=== PATIENT | female | born 2000 | race Caucasian/White ===

== ENCOUNTER 2024-07-17 08:16 | Emergency (ER) | payer OTHER, SELFPAY ==
--- NOTE | ~2024-07-17 | XR_ITS ---
XR abdomen obstructive series Ordering provider: Jeff Moreno APRN History: . left flank abdomen pain-r/o constipation/stone . Comparison: None. FINDINGS: BOWEL: Fecal material is seen in the right side and enteritis are extending the left side of the colo n suggestive of constipation. Nonobstructive bowel gas pattern. ORGANOMEGALY: None. SIGNIFICANT PATHOLOGIC CALCIFICATIONS: Stone is seen in the left kidney area. OTHER: No free air is seen under the diaphragm. IMPRESSION: NO ACUTE ABDOMINAL FINDINGS. Constipation Left renal stones. Reviewed, dictated and finalized at location A. FORCING METAL WORKER
--- NOTE | 2024-07-17 08:31 | ED_ITS ---
HPI - Abdominal Pain General Chief Complaint: Abdominal Pain Stated Complaint: abdominal pain Time Seen by Provider: 07/17/24 08:26 Source: patient Mode of arrival: ambulatory Limitations: no limitations History of Present Illness HPI narrative: Alvina is a 24-year-old transgender (male to female) patient presenting to the clinic today with complaints of abdominal pain/left flank pain since Tuesday. She report no BM since and this is not normal for her. Eating and drinking normally. Does have some nausea. Is passing gas. Does feel bloated at times. Pain is 4/10 constant achy at this time. Pain radiates from the left flank into the left lateral/lower abdomen. Has taken tylenol and some stool softener/laxative without relief. No history of kidney stones. No urinary symptoms, vomiting, or fever. Related Data Home Medications Medication Instructions Recorded Confirmed bicalutamide 50 mg tablet 50 mg PO DAILY 07/17/24 07/17/24 buspirone 10 mg tablet 10 mg PO BID 07/17/24 07/17/24 estradiol valerate 20 mg/mL 10 mg IM WEEKLY 07/17/24 07/17/24 intramuscular oil needle (disp) 18 G 18 gauge x 1 07/17/24 07/17/24 1/2 (BD Regular Bevel [place]) pramipexole 0.125 mg tablet 0.125 mg PO DAILY 07/17/24 07/17/24 progesterone micronized 100 mg 200 mg PO HS 07/17/24 07/17/24 capsule rimegepant 75 mg disintegrating 75 mg PO EVERY OTHER DAY 07/17/24 07/17/24 tablet (Nurtec ODT) syringe with needle 3 mL 23 gauge 07/17/24 07/17/24 x 1 1/2 (BD Luer-Emily Syringe) tadalafil 10 mg tablet 10 mg PO DAILY 07/17/24 07/17/24 Allergies Allergy/AdvReac Type Severity Reaction Status Date / Time No Known Allergies Allergy Verified 07/17/24 08:29 Review of Systems Review of Systems: Pertinent positives per HPI. Patient denies any fever, chills, rash, headache, visual changes, dizziness, cough, runny nose, sore throat, shortness of breath, chest pain, palpitations, vomiting, diarrhea PMFSH Comments At the time of my signature, I reviewed and agree with the nursing past medical, surgical, social, and family history. There is no relevant family history pertinent to the patient complaint. Exam Narrative: General: Well-developed, well nourished, in no apparent distress. Head: Normocephalic, atraumatic. Cardio: Regular rate and rhythm, s1 and s2 normal, no murmur appreciated. Resp: Clear to auscultation bilaterally, no rhonchi, rales, wheezing or rubs. Abdomen: Soft, pliable, nondistended, bowel sounds present, left lateral abdomen tender to palpation, no organomegly, left CVAT tenderness. Course Course Emergency Course: Portions of this record may have been created with voice recognition software. Level of Care: Express Care Visit Vital Signs Vital signs: Vital signs reviewed Transfer Transfered to: [facility] Transportation: Other (private car) Transfer rationale: Left flank pain, left lateral abdominal pain, constipation, hematuria, rule out obstructing kidney stone Accepting physician: Dr. Gleason Transfer comments: private car MDM - Abdominal Pain MDM Narrative Medical decision making narrative: At the time of visit patient is resting comfortably on the exam table. Patient appears to be nontoxic. Labs: Urinalysis dip was performed. UA shows a trace of blood. No sign of infection Diagnostics: Obstructive series x-ray was performed to rule out constipation, mass, or kidney stone. X-ray shows left-sided kidney stone and constipation Plan: I suspect patient has constipation with left-sided renal stones. Patient has hematuria with pain radiating from the left flank to the left lower abdomen. Recommend sending to the ER for further evaluation to make sure that there is not an obstructing stone in the ureter. Discussed this with the patient he voiced understanding and agrees to be transfer to the ER. He would like to be transfer to [facility]. Contacted Dr. Gleason at [facility] and he accepts patient for transfer. Patient to be transferred via private car. Differential Diagnosis Differential diagnosis: Likely abdominal pain, acute appendicitis, calculus of kidney, constipation, diverticulitis, gastroenteritis, pancreatitis and small bowel obstruction Discharge Plan Discharge Clinical Impression: Left flank pain, Left lateral abdominal pain, Left renal stone Constipation Qualifiers: Constipation type: unspecified constipation type Qualified Code(s): K59.00 - Constipation, unspecified Hematuria Qualifiers: Hematuria type: unspecified type Qualified Code(s): R31.9 - Hematuria, unspecified Patient Disposition: Acute Care Hospital Condition: Stable Instructions: Antibiotic Form Prescriptions: No Action bicalutamide 50 mg tablet 50 mg PO DAILY (DME) BD Regular Bevel [place] 18 gauge x 1 1/2 needle MISCELLANEOUS estradiol valerate 20 mg/mL oil 10 mg IM WEEKLY buspirone 10 mg tablet 10 mg PO BID pramipexole 0.125 mg tablet 0.125 mg PO DAILY (DME) syringe with needle [BD Luer-Emily Syringe] 3 mL 23 gauge x 1 1/2 syringe MISCELLANEOUS progesterone micronized 100 mg capsule 200 mg PO HS tadalafil 10 mg tablet 10 mg PO DAILY Nurtec ODT 75 mg tablet,disintegrating 75 mg PO EVERY OTHER DAY Follow-up/Referrals: UNKNOWN,DOCTOR [Primary Care Provider] - Time of Disposition: 09:22 Quality NIHSS Nursing Documentation ED NIHSS nursing documentation: reviewed/agree
[2024-07-17 08:35] VITALS: BP 125/76; PULSE 93; RESP 16; TEMP 37.1; O2SAT 100
[2024-07-17 09:13] LABS: EDUAAPPEAR Cloudy; EDUABILI Negative (Negative); EDUABLOOD Trace (Negative); EDUACOLOR1 Yellow; EDUAGLUCOSE Negative (Negative); EDUAKETONE Negative (Negative); EDUALEUKO Negative (Negative); EDUANITRATE Negative (Negative); EDUAPH 7.5; EDUAPROTEIN Negative (Negative); EDUAUROBILI 0.2
== END 2024-07-17 09:28 | disposition short-term general hospital (02) ==
PROVIDERS: Emergency Provider Nurse Practitioner Family
DX: K59.00 Constipation, unspecified (principal); R31.9 Hematuria, unspecified; N20.0 Calculus of kidney
CPT/HCPCS: 74019; 81003; 99203; G0463

== ENCOUNTER 2024-07-17 09:46 | Emergency (ER) | payer OTHER, SELFPAY ==
--- NOTE | ~2024-07-17 | CT_ITS ---
CT abdomen pelvis w con Ordering provider: Ton Lainez PA-C History: 24 years Female with . LLQ pain, L flank tender, eval for stone . Comparison: No Technique: CT abdomen and pelvis with IV and without oral contrast. Automated exposure control and it erative reconstruction technique were employed. The dose-length product was 515.94 mGy-cm. 100 mL Omn ipaque 350 was given IV. Findings: VISUALIZED LOWER CHEST: Normal. UPPER ABDOMINAL ORGANS: Liver: Normal. Gallbladder: Normal. Spleen: Normal. Stomach/duodenum: Normal. Pancreas: Normal. Adrenals: Normal. Kidneys: Hydronephrotic changes in the left kidney with a stone seen in the left upper ureter measuri ng 5 mm. Swelling of the left kidney with possible edema compared to the right is noted which may ind icate inflammatory changes. Further evaluation advised. PELVIC ORGANS: The bladder is underfilled.. BOWEL AND MESENTERY: Colon: No evidence of diverticulitis. Fecal material is loaded in the right side of the colon suggest carola of constipation. The appendix is not well demonstrated. Small Bowel: Normal. No obstruction. Peritoneum/mesentery: No free air or free fluid. No mesenteric lymphadenopathy. RETROPERITONEUM: Normal aorta. No retroperitoneal lymphadenopathy. MUSCULOSKELETAL: Superficial soft tissues: The superficial soft tissues are normal. Bones: Normal spine. IMPRESSION: 1. Stone in the left upper ureter with left hydronephrotic changes. Enlarged left kidney which raise s the possibility of pyelonephritis. Further evaluation advised. 2. Constipation. Reviewed, dictated and finalized at location A. EPRENEURSHIP PROGRAM DIRECTOR IMPRESSION: 1. Stone in the left upper ureter with left hydronephrotic changes. Enlarged l eft kidney which raises the possibility of pyelonephritis. Further evaluation a dvised. 2. Constipation.
[2024-07-17 10:01] VITALS: BP 131/78; PULSE 77; RESP 18; TEMP 37; O2SAT 100
--- NOTE | 2024-07-17 10:45 | ED_ITS ---
HPI - Female Genitourinary General Chief complaint: Urogenital-Female Stated complaint: left flank pain from UC Time Seen by Provider: 07/17/24 10:39 Source: patient Mode of arrival: ambulatory Limitations: no limitations History of Present Illness HPI Narrative: This is a 24-year-old biological male transitioning female who presents to the ED for chief complaint of left lower quadrant abdominal pain over the past couple of days. Reports it is intermittent in nature and is intermittently severe. Reports the pain radiates from left flank into the left lower quadrant. Had a UA done at urgent care that showed concern for kidney stone so they were sent here for scan. Endorses nausea but no vomiting. Denies urinary symptoms or hematuria. No history of stones in the past. Denies any other medical problems. Related Data Home Medications Medication Instructions Recorded Confirmed bicalutamide 50 mg tablet 50 mg PO DAILY 07/17/24 07/17/24 buspirone 10 mg tablet 10 mg PO BID 07/17/24 07/17/24 estradiol valerate 20 mg/mL 10 mg IM WEEKLY 07/17/24 07/17/24 intramuscular oil needle (disp) 18 G 18 gauge x 1 07/17/24 07/17/24 1/2 (BD Regular Bevel [place]) pramipexole 0.125 mg tablet 0.125 mg PO DAILY 07/17/24 07/17/24 progesterone micronized 100 mg 200 mg PO HS 07/17/24 07/17/24 capsule rimegepant 75 mg disintegrating 75 mg PO EVERY OTHER DAY 07/17/24 07/17/24 tablet (Nurtec ODT) syringe with needle 3 mL 23 gauge 07/17/24 07/17/24 x 1 1/2 (BD Luer-Emily Syringe) tadalafil 10 mg tablet 10 mg PO DAILY 07/17/24 07/17/24 Allergies Allergy/AdvReac Type Severity Reaction Status Date / Time amoxicillin Allergy Anaphylaxis Verified 07/17/24 09:47 cephalexin Allergy Anaphylaxis Verified 07/17/24 09:47 Review of Systems Review of Systems: All systems as dictated in HPI Exam Narrative: GENERAL: Well-appearing, well-nourished, and in no acute distress. HEAD: Normocephalic, atraumatic. EYES: PERRLA and EOMI. ENT: Nares clear, no rhinorrhea or epistaxis. Mucous membranes moist. Oropharynx without tonsillar hypertrophy exudate or other lesions. NECK: Supple. No adenopathy or masses. CHEST: No respiratory distress. Clear to auscultation. No wheezes rales or rhonchi HEART: Regular rate and rhythm. No murmur heard. Normal peripheral pulses. ABDOMEN: L flank tenderness present. Right flank nontender. Soft, otherwise nontender, nondistended, normal active bowel sounds. MSK: Normal range of motion. No edema. SKIN: Warm, dry, no rash. NEURO: Alert and oriented x4. No focal deficits. PSYCH: Normal mood and affect. Course Vital Signs Vital signs: Vital Signs Temperature 98.6 F 07/17/24 10:01 Pulse Rate 77 07/17/24 10:01 Respiratory Rate 18 07/17/24 10:01 Blood Pressure 131/78 07/17/24 10:01 Pulse Oximetry 100 07/17/24 10:01 Oxygen Delivery Room Air 07/17/24 10:01 Temperature 98.6 F 07/17/24 10:01 Pulse Rate 79 07/17/24 12:31 Respiratory Rate 18 07/17/24 12:31 Blood Pressure 139/93 H 07/17/24 12:31 Pulse Oximetry 100 07/17/24 12:31 Oxygen Delivery Room Air 07/17/24 10:01 MDM - Female Genitourinary MDM Narrative Medical decision making narrative: This is a 24-year-old male transitioning to female who presents to the ED for chief complaint of left flank pain and referred over for possible kidney stone. Vitals are normal. Exam shows left flank tenderness focally. Lab work is indicating a mild leukocytosis of 11.5. CMP unremarkable. Urinalysis unremarkable aside from trace leuks. CT abdomen pelvis with IV contrast: IMPRESSION: 1. Stone in the left upper ureter with left hydronephrotic changes. Enlarged left kidney which raises the possibility of pyelonephritis. Further evaluation advised. 2. Constipation. There is a 5 mm stone on the left side. Is proximal in nature. Patient's pain is in control on re-evaluation. Preferring to go home at this point on oral medications. Rx for hydrocodone, Flomax, Zofran given. Urology referral given. Patient will be discharged in stable condition. Supportive measures discussed and return precautions given. Patient is understanding and agreeable with plan for discharge with PCP/urology follow-up. Lab Data 07/17/24 10:47 07/17/24 10:47 Labs: Lab Results 07/17/24 07/17/24 Range/Units 10:47 10:57 WBC 11.5 H (4.5-10.0) K/mm3 RBC 4.59 (4.2-5.4) M/mm3 Hgb 13.9 (12.0-15.0) g/dL Hct 41.2 (37.0-47.0) % MCV 89.8 (80-100) fl MCH 30.3 (26-34) pg MCHC 33.7 (32-36) g/dl RDW 12.4 (11.5-14.5) % Plt Count 209 (150-375) k/mm3 MPV 9.3 (7.4-10.4) fl Immature Gran % (Auto) 0.3 (0-0.5) % Neut % (Auto) 76.9 H (45.5-73.1) % Lymph % (Auto) 12.6 L (18.3-44.2) % Dougherty % (Auto) 8.6 H (2.6-8.5) % Eos % (Auto) 1.3 (0-4.4) % Baso % (Auto) 0.3 (0.2-1.2) % Lymph # (Auto) 1.45 (0.9-3.2) K/mm3 Dougherty # (Auto) 1.0 H (0.1-0.6) K/mm3 Eos # (Auto) 0.2 (0-0.3) K/mm3 Baso # (Auto) 0.0 (0.0-0.1) K/mm3 Abs Immat Gran (auto) 0.03 (0.00-0.031) K/mm3 Absolute Neuts (auto) 8.8 H (1.3-6.7) K/mm3 Absolute Nucleated RBC 0.000 (0.0-0.012) K/mm3 Nucleated RBC % 0.0 (0.0-0.2) % Sodium 139 (137-145) mmol/L Potassium 4.0 (3.4-5.0) mmol/L Chloride 103 (98-107) mmol/L Carbon Dioxide 30 (22-30) mmol/L Anion Gap 6 (4-12) mmol/L BUN 10 (7-17) mg/dL Creatinine 0.80 (0.7-1.0) mg/dL Estim Creat Clear Calc 108 ml/min Estimated GFR > 60 (59 - ) Glucose 96 (65-110) mg/dL Calcium 8.9 (8.4-10.2) mg/dL Total Bilirubin 1.0 (0.2-1.3) mg/dL AST 22 (14-36) U/L ALT 13 (6-35) U/L Alkaline Phosphatase 46 (38-126) U/L Total Protein 8.0 (6.3-8.2) g/dL Albumin 4.2 (3.5-5.1) g/dL Lipase 53 (23-300) U/L Urine Color Yellow (Yellow) Urine Appearance Clear (Clear) Urine pH 7.0 (5.0-9.0) Ur Specific [place] 1.017 (1.001-1.035) Urine Protein Negative (Negative) mg/dL Urine Glucose (UA) Negative (Negative) mg/dL Urine Ketones Negative (Negative) mg/dL Ur Blood (Man) Negative (Negative) Urine Nitrate Negative (Negative) Urine Bilirubin Negative (Negative) Urine Urobilinogen 1.0 (<2.0) mg/dL Leukocyte Esterase Rfl Trace H (Negative) CAMER[place]/UL Urine RBC 0-2 (0-2) /hpf Urine WBC 0-5 (0-3) /hpf Ur Squamous Epith Cells None seen (Few) /hpf Urine Bacteria None seen /hpf Urine Casts 0-2 Discharge Plan Discharge Clinical Impression: Calculus of proximal left ureter Patient Disposition: Home, Self-Care Condition: Stable Instructions: Antibiotic Form, Kidney Stones (ED) Additional Instructions: Exam and imaging today do show a left-sided kidney stone that is about 5 mm. P lease take medications as prescribed and follow-up with Urology on this issue. Stone should pass, use the strainer with urination. If you have any new or worsening symptoms please return to the ER for further evaluation. Prescriptions: New tamsulosin [Flomax] 0.4 mg capsule 0.4 mg PO DAILY Qty: 10 0RF ondansetron 4 mg tablet,disintegrating 4 mg PO Q8H PRN (Reason: nausea and vomiting) Qty: 10 0RF hydrocodone-acetaminophen 5-325 mg tablet 1 tablet PO Q8H PRN (Reason: pain) Qty: 14 0RF No Action bicalutamide 50 mg tablet 50 mg PO DAILY (DME) BD Regular Bevel [place] 18 gauge x 1 1/2 needle MISCELLANEOUS estradiol valerate 20 mg/mL oil 10 mg IM WEEKLY buspirone 10 mg tablet 10 mg PO BID pramipexole 0.125 mg tablet 0.125 mg PO DAILY (DME) syringe with needle [BD Luer-Emily Syringe] 3 mL 23 gauge x 1 1/2 syringe MISCELLANEOUS progesterone micronized 100 mg capsule 200 mg PO HS tadalafil 10 mg tablet 10 mg PO DAILY Nurtec ODT 75 mg tablet,disintegrating 75 mg PO EVERY OTHER DAY Follow-up/Referrals: Silvestre Duke MD [Physician] - PHYSICIAN,BITUMEN PLANT OPERATOR [Non-Staff] - Time of Disposition: 12:18
[2024-07-17 10:54] LABS: Basophils Percent Auto 0.3 % (0.2-1.2); Eosinophils Absolute Auto 0.2 K/mm3 (0-0.3); Eosinophils Percent Auto 1.3 % (0-4.4); Hematocrit 41.2 % (37.0-47.0); Hemoglobin 13.9 g/dL (12.0-15.0); Immature Granulocyte Absolute 0.03 K/mm3 (0.00-0.031); Immature Granulocyte Percent A 0.3 % (0-0.5); Lymphocytes Absolute Auto 1.45 K/mm3 (0.9-3.2); Lymphocytes Percent Auto 12.6 % (18.3-44.2); Mean Corpuscular HGB Conc 33.7 g/dl (32-36); Mean Corpuscular Hemoglobin 30.3 pg (26-34); Mean Corpuscular Volume 89.8 fl (80-100); Mean Platelet Volume 9.3 fl (7.4-10.4); Monocytes Percent Auto 8.6 % (2.6-8.5); Neutrophils Absolute Auto 8.8 K/mm3 (1.3-6.7); Neutrophils Percent Auto 76.9 % (45.5-73.1); Platelet Count Result 209 k/mm3 (150-375); Red Blood Count 4.59 M/mm3 (4.2-5.4); Red Cell Distribution Width 12.4 % (11.5-14.5); White Blood Count 11.5 K/mm3 (4.5-10.0)
[2024-07-17] MEDS: MORPHINE SULFATE (*CRX) 4 MG/ML INJ IV PUSH (11:02)
[2024-07-17 11:03] VITALS: BP 133/82; PULSE 79; RESP 18; O2SAT 99
[2024-07-17] MEDS: ONDANSETRON INJ 4 MG/2 ML VIAL IV PUSH (11:03)
[2024-07-17 11:11] LABS: Add Urine Microscopic? YES; Appearance Urine Clear (Clear); Bacteria Urine None Seen /hpf; Bilirubin Urine Negative (Negative); Blood Urine Negative (Negative); Color Urine Yellow (Yellow); Glucose Urine UA Negative (Negative); Ketones Urine Negative (Negative); Leukocyte Esterase Ur Trace LEU/UL (Negative); Nitrate Urine Negative (Negative); Non Pathogenic Casts 0-2; Protein Urine Negative (Negative); RBC Urine 0-2 /hpf (0-2); Specific Grav Ur 1.017 (1.001-1.035); Squamous Epithelial Cell Urine None Seen /hpf (Few); WBC Urine 0-5 /hpf (0-3)
--- NOTE | 2024-07-17 11:12 | PC.NURSE ---
Pt reports is in processes of transitioning. Currently, taking po hormone medications, states has not started surgical process. Bedside not performed. EDMD aware
[2024-07-17 11:18] LABS: Alanine Aminotransferase 13 U/L (6-35); Albumin Level 4.2 g/dL (3.5-5.1); Alkaline Phosphatase 46 U/L (38-126); Anion Gap 6 mmol/L (4-12); Aspartate Amino Transferase 22 U/L (14-36); Blood Urea Nitrogen 10 mg/dL (7-17); Calcium 8.9 mg/dL (8.4-10.2); Carbon Dioxide 30 mmol/L (22-30); Chloride 103 mmol/L (98-107); Estimated CRCL calculation 108 ml/min; Estimated Glomerular Filt Rate > 60; Glucose 96 mg/dL (65-110); Lipase 53 U/L (23-300); Sodium 139 mmol/L (137-145)
[2024-07-17 12:31] VITALS: BP 139/93; PULSE 79; RESP 18; O2SAT 100
== END 2024-07-17 12:32 | disposition home or self-care (01) ==
PROVIDERS: Emergency Provider Physician Assistant
DX: N20.1 Calculus of ureter (principal); F64.0 Transsexualism; Z79.899 Other long term (current) drug therapy; Z79.890 Hormone replacement therapy; K59.00 Constipation, unspecified
CPT/HCPCS: 36415; 74177; 80053; 81001; 83690; 85025; 96374; 96375; 99284; J2270; J2405; Q9967

== ENCOUNTER 2024-09-12 14:11 | Emergency (ER) | payer OTHER, SELFPAY ==
[2024-09-12 14:20] VITALS: BP 123/64; PULSE 84; RESP 18; TEMP 36.7; O2SAT 100
[2024-09-12 14:32] LABS: EDUAAPPEAR Clear; EDUABILI Negative (Negative); EDUABLOOD Negative (Negative); EDUACOLOR1 Yellow; EDUAGLUCOSE Negative (Negative); EDUAKETONE Negative (Negative); EDUALEUKO Negative (Negative); EDUANITRATE Negative (Negative); EDUAPROTEIN Negative (Negative); EDUAUROBILI 0.2
--- NOTE | 2024-09-12 15:03 | ED.GENADULT ---
HPI - General Adult General Chief complaint: Urogenital-Female Stated complaint: uti symptoms Source: patient Mode of arrival: ambulatory Limitations: no limitations History of Present Illness HPI narrative: This is a 24 yr old transgender female who presents for evaluation of low back pain and urinary symptoms. Patient states that she had a kidney stone identified in late June. She had a passing the stone on 08/20/24. She now has some low back discomfort that she attributes to playing hockey. She has noted a several week history of mild dysuria and a few episodes where she has visualize some blood in ejaculate post-sexual climax. She denies any fever, chills, abdominal pain testicular pain, urethral discharge or other urinary symptoms. Her female sex partner is asymptomatic. Pt was given flomax when she had the kidney stone but has not been taking it in several weeks. Related Data Home Medications ?Medication ?Instructions ?Recorded ?Confirmed ?Last Taken ?Type bicalutamide 50 mg tablet 50 mg PO DAILY 07/17/24 07/17/24 Unknown History buspirone 10 mg tablet 10 mg PO BID 07/17/24 07/17/24 Unknown History estradiol valerate 20 mg/mL 10 mg IM WEEKLY 07/17/24 07/17/24 Unknown History intramuscular oil needle (disp) 18 G 18 gauge x 1 07/17/24 07/17/24 Unknown History 1/2 (BD Regular Bevel [employer]) pramipexole 0.125 mg tablet 0.125 mg PO DAILY 07/17/24 07/17/24 Unknown History progesterone micronized 100 mg 200 mg PO HS 07/17/24 07/17/24 Unknown History capsule rimegepant 75 mg disintegrating 75 mg PO EVERY OTHER DAY 07/17/24 07/17/24 Unknown History tablet (Nurtec ODT) syringe with needle 3 mL 23 gauge 07/17/24 07/17/24 Unknown History x 1 1/2 (BD Luer-Emily Syringe) tadalafil 10 mg tablet 10 mg PO DAILY 07/17/24 07/17/24 Unknown History Allergies Allergy/AdvReac Type Severity Reaction Status Date / Time amoxicillin Allergy Severe Anaphylaxis Verified 09/12/24 14:18 cephalexin Allergy Severe Anaphylaxis Verified 09/12/24 14:18 Review of Systems Review of Systems: CONSTITUTIONAL: Denies fever, chills, or sweats. EYES: Denies visual changes, redness, or discharge. ENT: Denies rhinorrhea, congestion, sore throat, or otalgia. CARDIOVASCULAR: Denies chest pain, palpitations, or edema. RESPIRATORY: Denies cough or dyspnea. GASTROINTESTINAL: Denies abdominal pain, nausea, vomiting, or diarrhea. GENITOURINARY: Reports some blood in ejaculate following sexual climax on several occasions. Denies urethral discharge. Denies dysuria or hematuria. SKIN: Denies rash or itching. MUSCULOSKELETAL: Reports low back pain. Denies joint pain, or myalgia. NEUROLOGIC: Denies headache, numbness, dizziness, or weakness. PSYCHIATRIC: Denies anxiety or depression. [facility] Past Medical History Medical History Migraine Restless legs Surgical History Surgical History Hx of appendectomy Family History Family History Mother Family history non-contributory Social History Social History Gender identity (if verbalized by the patient): Transgender Female Spiritual care concerns: No Exam Narrative: GENERAL: Well-appearing, well-nourished, and in no acute distress. HEAD: Normocephalic, atraumatic. EYES: PERRLA and EOMI. ENT: Nares clear, no rhinorrhea or epistaxis. Mucous membranes moist. Oropharynx without tonsillar hypertrophy exudate or other lesions. Bilateral TMs pearly long nonbulging NECK: Supple. No adenopathy or masses. No carotid bruits or JVD CHEST: Clear to auscultation. No respiratory distress. No wheezes rales or rhonchi HEART: Regular rate and rhythm. No murmur heard. Normal peripheral pulses. ABDOMEN: Soft, nontender, nondistended, normal active bowel sounds. BACK: No tenderness in midline or paraspinous muscles of lumbar spine. No CVA tenderness PROSTATE: No boggy. No enlargement. No nodules palpated EXTREMITIES: Normal range of motion. No edema. SKIN: Warm, dry, no rash. NEURO: No focal deficits. Alert and oriented x3. PSYCH: Normal mood and affect. Course Course Emergency Course: This is a 24-year-old transgender female who presented for evaluation of low back pain and urinary symptoms. no evidence of UTI today. I did offer STI testing which patient declined. Other differentials would be renal colic verses prostatitis verses BPH. Prostate exam today was normal. Pt has no CVA tenderness today suggesting kidney stone. In fact, reported pain as 2/10 in severity. Pt looks well clinically. Recommended she follow up with PCP and go to the ER In the event that she has persistent worsening symptoms. Patient in agreement with plan of care. Level of Care: Express Care Visit Vital Signs Vital signs: Vital Signs Temperature 36.7 C 09/12/24 14:20 Pulse Rate 84 09/12/24 14:20 Respiratory Rate 18 09/12/24 14:20 Blood Pressure 123/64 09/12/24 14:20 Pulse Oximetry 09/12/24 14:20 Oxygen Delivery Room Air 09/12/24 14:20 Temperature 36.7 C 09/12/24 14:20 Pulse Rate 09/12/24 14:20 Respiratory Rate 18 09/12/24 14:20 Blood Pressure 123/64 09/12/24 14:20 Pulse Oximetry 100 09/12/24 14:20 Oxygen Delivery Room Air 09/12/24 14:20 Medical Decision Making Vital Signs Vital Signs: Vital Signs Temperature 36.7 C 09/12/24 14:20 Pulse Rate 84 09/12/24 14:20 Respiratory Rate 18 09/12/24 14:20 Blood Pressure 123/64 09/12/24 14:20 Pulse Oximetry 09/12/24 14:20 Oxygen Delivery Room Air 09/12/24 14:20 Temperature 36.7 C 09/12/24 14:20 Pulse Rate 84 09/12/24 14:20 Respiratory Rate 18 09/12/24 14:20 Blood Pressure 123/64 09/12/24 14:20 Pulse Oximetry 09/12/24 14:20 Oxygen Delivery Room Air 09/12/24 14:20 Lab Data Labs: Lab Results 09/12/24 Range/Units 14:30 POC Urine Color Yellow POC Urine Clarity Clear POC Urine pH 6.0 POC Ur Specif [place] 1.020 POC Urine Protein Negative (Negative) POC Ur Glucose (UA) Negative (Negative) POC Urine Ketones Negative (Negative) POC Urine Blood Negative (Negative) POC Urine Nitrite Negative (Negative) POC Urine Bilirubin Negative (Negative) POC Urine Urobilinogen 0.2 POC U Leukocyte Esteras Negative (Negative) Discharge Plan Discharge Clinical Impression: History of kidney stones, Low back pain, Lower urinary tract symptoms (LUTS) Patient Disposition: Home, Self-Care Condition: Stable Instructions: Antibiotic Form, Kidney Stones (ED), Acute Low Back Pain (ED), Dysuria (ED) Additional Instructions: PLEASE FOLLOW UP WITH YOUR PRIMARY PROVIDER THIS WEEK. YOU MAY BENEFIT FROM: 1.STI TESTING 2.REPEAT URINALYSIS 3.PSA IF YOU HAVE WORSENING BACK PAIN OR URINARY SYMPTOMS PLEASE GO TO THE ER Patient Language: French Prescriptions: No Action bicalutamide 50 mg tablet 50 mg PO DAILY (DME) BD Regular Bevel [employer] 18 gauge x 1 1/2 needle MISCELLANEOUS estradiol valerate 20 mg/mL oil 10 mg IM WEEKLY buspirone 10 mg tablet 10 mg PO BID pramipexole 0.125 mg tablet 0.125 mg PO DAILY (DME) syringe with needle [BD Luer-Emily Syringe] 3 mL 23 gauge x 1 1/2 syringe MISCELLANEOUS progesterone micronized 100 mg capsule 200 mg PO HS tadalafil 10 mg tablet 10 mg PO DAILY Nurtec ODT 75 mg tablet,disintegrating 75 mg PO EVERY OTHER DAY tamsulosin [Flomax] 0.4 mg capsule 0.4 mg PO DAILY Qty: 10 0RF ondansetron 4 mg tablet,disintegrating 4 mg PO Q8H PRN (Reason: nausea and vomiting) Qty: 10 0RF hydrocodone-acetaminophen 5-325 mg tablet 1 tablet PO Q8H PRN (Reason: pain) Qty: 14 0RF Follow-up/Referrals: Tab Alcocer [Other]
== END 2024-09-12 14:53 | disposition home or self-care (01) ==
PROVIDERS: Emergency Provider Nurse Practitioner
DX: R30.0 Dysuria (principal); M54.50 Low back pain, unspecified; Z87.442 Personal history of urinary calculi; F64.0 Transsexualism
CPT/HCPCS: 81003; 99212; G0463